=== PATIENT | male | born 1965 | race Caucasian/White ===

== ENCOUNTER 2017-04-16 13:22 | Emergency (ER) | payer OTHER ==
[~2017-04-16] VITALS: Ht 170.2 cm; Wt 124.7 kg
[2017-04-16] MEDS ORDERED: CARVEDILOL12.5 MG PO (13:40)
[2017-04-16] MEDS ORDERED: PAXIL30 MG PO (13:41)
[2017-04-16] MEDS ORDERED: GLUCOPHAGE500 MG PO (13:51)
[2017-04-16] MEDS ORDERED: HYDROCHLOROTHIA25 MG PO (13:52)
[2017-04-16] MEDS ORDERED: ZOCOR40 MG PO (13:52)
[2017-04-16] MEDS ORDERED: ZITHROMAX250 MG PO (13:53)
--- NOTE | 2017-04-17 19:16 | EKG ---
[facility] [address] [facility] [place] [address] Signed Normal sinus rhythm Inferior infarct , age undetermined Abnormal ECG No previous ECGs available Confirmed by KIKO PAZ MD ([id number]) on 04/17/2017 7:15:54 PM Electronically Signed By: KIKO PAZ MD 04/17/171915 PATIENT NAME: CHARLES BALLESTEROS Electrocardiogram DATE OF : 65 PHYSICIAN: KIKO PAZ MD REPORT #: [id number] REPORT IS CONFIDENTIAL AND NOT TO BE RELEASED WITHOUT AUTHORIZATION
== END 2017-04-16 16:00 | disposition home or self-care (01) ==
LOC: ED 13:22
DX: R07.89 Other chest pain (principal); J06.9 Acute upper respiratory infection, unspecified; I10 Essential (primary) hypertension; Z79.899 Other long term (current) drug therapy
CPT/HCPCS: 71020; 80053; 84484; 85025; 93005; 93010; 94640; 99284

== ENCOUNTER 2022-04-04 21:27 | Emergency (ER) | payer OTHER ==
[~2022-04-04] VITALS: Ht 170.2 cm; Wt 97.5 kg
[~2022-04-04 21:27] MED LIST: CARVEDILOL12.5 MG PO; GLUCOPHAGE500 MG PO; HYDROCHLOROTHIA25 MG PO; PAXIL30 MG PO; ZITHROMAX250 MG PO; ZOCOR40 MG PO
== END 2022-04-05 00:16 | disposition home or self-care (01) ==
LOC: ED 21:27
DX: M17.11 Unilateral primary osteoarthritis, right knee (principal); I10 Essential (primary) hypertension
CPT/HCPCS: 73560; 99283-25; A9270